=== PATIENT | male | born 1975 | race Two or more races ===

== ENCOUNTER → 2021-07-23 | Day surgery (SDC) | payer OTHER ==
[~2021-07-23] MED LIST: ADULT LOW DOSE81 M1 PO; PERCOCET 5-3251 EACH PO; PROGRAF1 MG PO
== END | disposition home or self-care (01) ==
LOC: ADM 07-21 09:00 → CIR.AMB 05:16
PROVIDERS: ATTEND Surgery
DX: K60.3 Anal fistula (principal); Z20.822 Contact with and (suspected) exposure to COVID-19

== ENCOUNTER 2021-11-26 06:50 | Day surgery (SDC) | payer OTHER ==
[2021-11-26] MEDS ORDERED: PERCOCET 5-3251 EACH PO (14:02)
== END 2021-11-26 17:00 | disposition home or self-care (01) ==
LOC: CIR.AMB 06:50
PROVIDERS: ATTEND Surgery
DX: K60.3 Anal fistula (principal); K62.89 Other specified diseases of anus and rectum; Z20.822 Contact with and (suspected) exposure to COVID-19; E83.01 Wilson's disease; Z94.4 Liver transplant status; E66.9 Obesity, unspecified